=== PATIENT | female | born 1985 | race Caucasian/White ===

== ENCOUNTER 2017-01-29 21:49 | Emergency (ER) | payer OTHER ==
[~2017-01-29] VITALS: Ht 165.1 cm; Wt 118.2 kg
[~2017-01-29 21:49] MED LIST: FLUC150T48 PO; SULF1TAB7 PO
[2017-01-29 21:52] VITALS: BP 147/96; PULSE 128; RESP 16
--- NOTE | 2017-01-29 22:03 | ED.REPORT ---
HPI-General Illness Date of Service January 29, 2017 ED Provider: Bhumi HooverO. The patient is a 31 year old female with a history of chronic sinus infections, trigeminal neuralgia, anxiety, and PTSD who presents to the ED with left-sided facial pain onset three days ago. Associated symptoms include rhinorrhea as well as left-sided head, ear, and tooth pain. The patient denies fever, chills, neck pain, neck stiffness, nausea, vomiting, cough, other symptoms. She has had similar symptoms in the past associated with trigeminal neuralgia, most recently three months ago. Nursing Notes Stated Complaint: HEADACHE Chief Complaint: Headache Nursing Notes Reviewed: Yes Allergies: Coded Allergies: amoxicillin (Verified Allergy, Unknown, 05/30/16) clavulanic acid (Verified Allergy, Unknown, 05/30/16) Scheduled Sulfamethoxazole/Trimeth 800-160 mg (Bactrim DS) 1 Each Tablet 1 TABLET PO BID Scheduled PRN Fluconazole (Diflucan) 150 Mg Tablet 150 MG PO ONCE PRN PRN yeast infection General Time Seen by MD: 22:02 Chief Complaint Other (Left-sided Facial Pain) Hx Obtained From: Patient Arrived By: Walk-in Sudden in Onset?: No Onset Occurred: 3 days ago Symptom Duration: Since onset Location: : Ear left: Face: Head: Mouth Quality: Painful Severity: Current: Moderate Severity: Maximum: Moderate Pertinent Negative: Relieved by nothing Context Related History: Reports Psychiatric history Recent Healthcare: No recent doctor visit Similar Sx Previous: Yes Past Medical History Past Medical History Chronic sinus infections Trigeminal neuralgia Anxiety PTSD Past Surgical History Sinus surgery Smoking History Never Smoker Social History Alcohol Use: Denies alcohol use Drug Use: Denies drug use Ambulatory Status Independent Review of Systems + Left-sided facial pain - Neck stiffness Full Review of Systems Constitutional: Denies: Chills, Fever Ears / Nose / Throat: Reports: Earache left, Toothache (Left-sided) Respiratory: Denies: Non-productive cough, Shortness of breath GI: Denies: Diarrhea, Nausea, Vomiting Musculoskeletal: Denies: Neck pain Allergy / Immune: Reports: Rhinorrhea Neurologic: Reports: Headache (Left-sided) Complete sys rev & neg: except as marked. Physical Exam Vital Signs Vital Signs Date Time Temp Pulse Resp B/P Pulse Ox O2 Delivery O2 Flow Rate FiO2 01/29/17 23:39 37.1 97 16 135/88 100 Room Air 5/7/17 21:52 37.1 128 16 147/96 Room Air Initial VS: Reviewed Respiratory: Breath sounds normal, Clear to auscultation, No respiratory distress Cardiovascular: Regular rate & rhythm, Heart sounds normal Skin: Warm, Dry, No cyanosis Psychiatric: Mood/affect normal, Behavior normal, Normal thought content General/Constitutional: Awake, Alert Head / Eyes: Atraumatic, Normocephalic, PERRL, EOMI ENT: Airway patent, Mucous membranes moist, Tympanic membs NL, Ext aud canal NL Sinus: Positive: Tender maxillary L Neck: Supple, No meningismus, Full range of motion Neurologic: Oriented X3, Speech NL, No motor deficits, No sensory deficits, CN II - XII intact Interpretation & Diagnostics Lab Results Interpretation Result Diagram: 01/29/17 2303 01/29/17 2303 Test 01/29/17 23:03 White Blood Count 9.7th/mm3 (3.8-10.1) Red Blood Count 4.48mil/mm3 (3.90-5.20) Hemoglobin 12.2g/dL (12.0-15.6) Hematocrit 37.4% (35.0-46.0) Mean Corpuscular Volume 83.5fL (81-100) Mean Corpuscular Hemoglobin 27.2pg (27.0-35.0) Mean Corpuscular Hemoglobin Concent 32.6% (32.0-37.0) Red Cell Distribution Width 13.0% (12.3-15.4) Platelet Count 375bil/L (150-400) Neutrophils (%) (Auto) 69.9% (40-74) Lymphocytes (%) (Auto) 23.5% (14-46) Monocytes (%) (Auto) 5.4% (4-12) Eosinophils (%) (Auto) 0.7% (0-5) Basophils (%) (Auto) 0.3% (0-3) Sodium Level 141mEq/L (134-144) Potassium Level 4.3mEq/L (3.5-5.2) Chloride Level 101mEq/L (97-108) Carbon Dioxide Level 24mmol/L (18-29) Blood Urea Nitrogen 9mg/dL (6-20) Creatinine 0.57mg/dL (0.57-1.00) Estimat Glomerular Filtration Rate 177mL/min (>59) Glucose Level 101mg/dL (60-99) Calcium Level 9.5mg/dL (8.5-10.1) Total Bilirubin 0.3mg/dL (0.0-1.2) Aspartate Amino Transf (AST/SGOT) 20U/L (0-50) Alanine Aminotransferase (ALT/SGPT) 25U/L (0-32) Alkaline Phosphatase 95U/L (25-150) C-Reactive Protein 2.1mg/dL (0.0-0.5) Total Protein 7.7g/dL (6.4-8.4) Albumin 4.2g/dL (3.4-5.0) Hold Phipps Top Tube Received (Received) CT Head Interpretation CONCLUSION: Left maxillary sinusitis. Report transmitted to the ED at 01/29/2017 - 10:36:18 PM PDT Study: Head CT no contrast Interpretation / Wet Read by: Interpret - Radiologist (Alvin Miranda M.D.) Re-Eval/Medical Decision Med Decision/Clinical Course Classic maxillary sinusitis symptoms. Sinusitis is evident on the CT scan. She is exquisitely tender over her left maxilla. I suspect this is triggered her trigeminal neuralgia. As such we will treat her with a course of antibiotics. Short course of opiates provided for pain. She did not have clinical meningitis or subarachnoid hemorrhage. Lumbar puncture was not indicated. Source of Hx: Old records Time of Eval: 23:30 Patient Status: Condition improved, Pain improved Evaluation: Mental status normal, Neurologic nonfocal Re-Evaluation/Progress Note: Discussed with patient CT and lab results, diagnosis, and plan for discharge. Follow-up and return to the ER instructions given. Patient agrees with plan for care and all questions were addressed. Counseled Regarding: Diagnosis, Lab results, Need for follow-up, When/why to return to ED Discharge & Departure Primary Impression: Sinusitis Sinusitis location: maxillary Chronicity: acute Recurrence: not specified as recurrent Qualified Code: J01.00 - Acute maxillary sinusitis, unspecified Additional Impression: Trigeminal neuralgia Disposition: Home Discharge Condition All VS Reviewed: Yes Condition: Improved Patient Instructions: Sinusitis (ED), Trigeminal Neuralgia (ED) Additional Instructions: Thank you for entrusting us with your care. Your CT indicated left maxillary sinusitis. Please take Omnicef twice daily for seven days. 1-2 Percocet every six hours as needed for pain. Do not drink alcohol, drive, or consume acetaminophen while taking Percocet. Call your primary care provider on Monday for a follow-up appointment. Return to the ER with any new or worsening symptoms including fever, neck stiffness, or other signs of meningitis. Referrals: OTHER,PHYSICIAN (PCP) Scribe Attestation Portions of this note were transcribed by Anjelica Smith. I, Dr. Ochoa, personally performed the history, physical exam, and medical decision-making; I reviewed and confirmed the accuracy of the information in the transcribed note. Signed by: Saeed Mora, 01/29/2017, 23:57 Donnell Ochoa DO January 29, 2017 22:03 ANJELICA SMITH January 29, 2017 22:36
[2017-01-29] MEDS ORDERED: 0.9% Sodium Chloride 1,000 ML IV ONE (22:10)
[2017-01-29] MEDS ORDERED: HYDROcodone-APAP 5-325 mg Tablet PO ONE (22:10)
[2017-01-29] MEDS ORDERED: Ondansetron 2 mg/mL 2 mL Inj IVPUSH PRN (22:10)
[2017-01-29] MEDS ORDERED: Cefdinir 25 mg/mL 60 mL Suspension PO ONE (22:45)
[2017-01-29] MEDS ORDERED: _oxyCODONE/APAP 5-325 mg Tablet PO PRN (23:00)
[2017-01-29 23:14] LABS: BASOPHILS % (AUTO) 0.3 % (0-3); EOSINOPHILS % (AUTO) 0.7 % (0-5); MONOCYTES % (AUTO) 5.4 % (4-12); Mean Corpuscular Hemoglobin 27.2 pg (27.0-35.0); Mean Corpuscular Volume 83.5 fL (81-100); NEUTROPHILS % (AUTO) 69.9 % (40-74); Platelet Count 375 bil/L (150-400)
[2017-01-29 23:39] VITALS: BP 135/88; PULSE 97; RESP 16; O2SAT 100
--- NOTE | 2017-01-30 08:04 | DRSVH ---
PROCEDURE: CT BRAIN WITHOUT CONTRAST ([id number]) INDICATIONS: headache, left facial pain TECHNIQUE: Noncontrast 4.5 mm thick angled axial sections acquired from the foramen magnum to the vertex, with c oronal reformats. COMPARISON: None. FINDINGS: Image quality: Excellent. CSF spaces: Basal cisterns are patent. No extra-axial fluid collections. The ventricles are symmet justin in size and shape. Brain: No intracranial bleeds or masses. There is cerebral volume loss for age, with resultant vent ricular and sulcal prominence. There are periventricular and deep white matter chronic small vessel ischemic changes. There is intracranial internal carotid artery atherosclerosis. Skull and face: Calvarium and visualized facial bones appear intact, without suspicious lesions. Sinuses: Moderate left maxillary sinus disease. Moderate left ethmoid sinus disease. IMPRESSION: Moderate left maxillary and ethmoid sinus disease. No acute intracranial process. Dictated by: Jaosn Arango M.D. on 01/30/2017 at 8:00 Approved by: Jason Arango M.D. on 01/30/2017 at 8:03
== END 2017-01-29 23:45 | disposition home or self-care (01) ==
LOC: SED 21:49
DX: J01.00 Acute maxillary sinusitis, unspecified (principal); G50.0 Trigeminal neuralgia; F41.9 Anxiety disorder, unspecified; F43.10 Post-traumatic stress disorder, unspecified; Z88.8 Allergy status to other drugs, medicaments and biological substances; Z88.1 Allergy status to other antibiotic agents
CPT/HCPCS: 36415; 70450; 80053; 85025; 86140; 96372; 99285; J1885

== ENCOUNTER 2017-04-07 22:40 | Emergency (ER) | payer OTHER ==
[~2017-04-07] VITALS: Ht 165.1 cm; Wt 118.2 kg
[2017-04-07 22:50] VITALS: BP 141/84; PULSE 127; RESP 16; O2SAT 100
[2017-04-07 23:41] LABS: BASOPHILS % (AUTO) 0.2 % (0-3); EOSINOPHILS % (AUTO) 1.1 % (0-5); MONOCYTES % (AUTO) 4.5 % (4-12); Mean Corpuscular Volume 81.2 fL (81-100); NEUTROPHILS % (AUTO) 75.4 % (40-74); Platelet Count 415 bil/L (150-400)
[2017-04-08] LABS: Magnesium 1.8 mg/dL (1.6-2.6)
--- NOTE | 2017-04-08 00:36 | ED.REPORT ---
HPI-General Illness Date of Service Apr 08, 2017 ED Provider: Dr. Lala Pt is a 31 y/o female w/ a hx of recurrent sinus infections, trigeminal neuralgia, presenting to the ED c/o facial pain onset about 3 days ago. The patient has been feeling generally ill with URI-like symptoms for 3 days and states this is causing a trigeminal neuralgia flare-up. She normally experiences trigeminal neuralgia pain on the left side of her face for which she takes gabapentin and OxyContin 30 mg BID. She is experiencing right-sided facial pain as well today which feels similar to her left-sided trigeminal neuralgia pain. She c/o associated post-nasal drip, nausea, jaw pain. The patient states she also has chronic sinus problems and usually takes anti- allergy medications and has taken antibiotics in the past. She states this feels similar to a sinus infection. She is feeling dehydrated because of her symptoms. Nursing Notes Stated Complaint: HEADACHE Chief Complaint: General Complaint Nursing Notes Reviewed: Yes Allergies: Coded Allergies: amoxicillin (Verified Allergy, Unknown, 05/30/16) clavulanic acid (Verified Allergy, Unknown, 05/30/16) Scheduled Sulfamethoxazole/Trimeth 800-160 mg (Bactrim DS) 1 Each Tablet 1 TABLET PO BID Scheduled PRN Fluconazole (Diflucan) 150 Mg Tablet 150 MG PO ONCE PRN PRN yeast infection General Time Seen by MD: 00:36 Chief Complaint Other (facial pain) Hx Obtained From: Patient Arrived By: Walk-in Sudden in Onset?: No Onset Occurred: 3 days ago Symptom Duration: Since onset Location: : Face Quality: Painful Radiation: : Does not radiate Severity: Current: Mild Severity: Maximum: Moderate Recent Healthcare: Previous diagnosis Similar Sx Previous: Yes Past Medical History Past Medical History Notes: Takes Gabapentin and Oxycontin chronically for trigeminal neuralgia Past Medical History Chronic sinus infections Trigeminal neuralgia Anxiety PTSD Past Surgical History Sinus surgery Smoking History Never Smoker Social History Alcohol Use: Denies alcohol use Drug Use: Denies drug use Ambulatory Status Independent Review of Systems +facial pain Full Review of Systems Constitutional: Denies: Chills, Fever Ears / Nose / Throat: Reports: Nasal congestion Respiratory: Reports: Non-productive cough, Denies: Shortness of breath GI: Reports: Nausea, Denies: Abdominal pain Complete sys rev & neg: except as marked. Physical Exam Vital Signs Vital Signs Date Time Temp Pulse Resp B/P Pulse Ox O2 Delivery O2 Flow Rate FiO2 04/08/17 03:21 36.7 90 16 138/80 100 Room Air 04/07/17 22:50 36.9 127 16 141/84 100 Room Air Initial VS: Reviewed, Vital signs abnormal Head / Eyes: Atraumatic, Normocephalic, PERRL Neck: Supple, Full range of motion Respiratory: Breath sounds normal, Clear to auscultation, No respiratory distress Abdomen / GI: Soft, Non-tender, No guarding, No rebound, No distention Extremities: Vascular intact, Neuro intact, No swelling Skin: Warm, Dry, No cyanosis Neurologic: Alert, Oriented, Nonfocal Psychiatric: Mood/affect normal, Behavior normal, Normal thought content General/Constitutional: Awake, Alert, No acute distress, Cooperative, Not toxic appearing Distress / Hydration: Positive: Dehydration mild ENT: Atraumatic, Airway patent, Mucous membranes moist, Tympanic membs NL Hole in nasal septum Significant crusting bilaterally Erythema of nasal passages and turbinates Cardiovascular: Regular rhythm, Heart sounds NL, No gallop, No murmurs, No rubs Heart Rate / Rhythm: Positive: Tachycardia Interpretation & Diagnostics Lab Results Interpretation Result Diagram: 04/07/17 2325 04/07/17 2325 Test 04/07/17 23:25 White Blood Count 14.8th/mm3 (3.8-10.1) Red Blood Count 4.74mil/mm3 (3.90-5.20) Hemoglobin 12.8g/dL (12.0-15.6) Hematocrit 38.5% (35.0-46.0) Mean Corpuscular Volume 81.2fL (81-100) Mean Corpuscular Hemoglobin 27.0pg (27.0-35.0) Mean Corpuscular Hemoglobin Concent 33.2% (32.0-37.0) Red Cell Distribution Width 13.2% (12.3-15.4) Platelet Count 415bil/L (150-400) Neutrophils (%) (Auto) 75.4% (40-74) Lymphocytes (%) (Auto) 18.5% (14-46) Monocytes (%) (Auto) 4.5% (4-12) Eosinophils (%) (Auto) 1.1% (0-5) Basophils (%) (Auto) 0.2% (0-3) Sodium Level 138mEq/L (134-144) Potassium Level 3.8mEq/L (3.5-5.2) Chloride Level 100mEq/L (97-108) Carbon Dioxide Level 24mmol/L (18-29) Blood Urea Nitrogen 9mg/dL (6-20) Creatinine 0.67mg/dL (0.57-1.00) Estimat Glomerular Filtration Rate 147mL/min (>59) Glucose Level 107mg/dL (60-99) Calcium Level 9.5mg/dL (8.5-10.1) Magnesium Level 1.8mg/dL (1.6-2.6) Total Bilirubin 0.2mg/dL (0.0-1.2) Aspartate Amino Transf (AST/SGOT) 25U/L (0-50) Alanine Aminotransferase (ALT/SGPT) 32U/L (0-32) Alkaline Phosphatase 105U/L (25-150) Total Protein 7.7g/dL (6.4-8.4) Albumin 4.4g/dL (3.4-5.0) Hold Phipps Top Tube Received (Received) Re-Eval/Medical Decision Med Decision/Clinical Course Pt presenting with sinusitis symptoms x2-3 days that have worsened her trigeminal neuralgia and made it difficult to stay hydrated due to the pain. Pt was given 1L NS, dilaudid for pain and zithromax for sinus infection. She was feeling much better at the time of d/c and was given instructions to f/u with pcp. Discussed with pt that as she is on pain contract, no narcotics can be prescribed here. 4 additional days of zithromax were given for sinus infection. Source of Hx: Old records Time of Eval: 02:27 Re-Evaluation/Progress Note: Pt rechecked. Informed pt of plan for treatment. Pt understands and agrees with plan for treatment. F/U instructions and RTER warnings given. All questions addressed. Counseled Regarding: Diagnosis, Lab results, Need for follow-up, When/why to return to ED Discharge & Departure Primary Impression: Trigeminal neuralgia Additional Impressions: Sinusitis Sinusitis location: unspecified location Chronicity: acute Recurrence: recurrent Qualified Code: J01.91 - Acute recurrent sinusitis, unspecified Dehydration Disposition: Home Discharge Condition All VS Reviewed: Yes Condition: Stable Additional Instructions: Thank you for entrusting us with your care. I suspect the sinusitis may have exacerbated your trigeminal neuralgia. Labs today were reassuring. Please take the azithromycin antibiotic as directed. Continue to perform sinus rinses and make sure you are using only sterile water during these. Follow up with your primary care provider next week. Return to the emergency department for high fever, vomiting, severe headache, confusion, or for other concerning signs or symptoms. Referrals: NOPCP (PCP) Ilanae Attestation Portions of this note were transcribed by Vipul Allan. I, Dr. Lala personally performed the history, physical exam and medical decision-making; I reviewed and confirmed the accuracy of the information in the transcribed note. Signed by Saeed Corral, 04/08/17 - 0100 Raul Lala DO Apr 08, 2017 00:36 VIPUL ALLAN Apr 08, 2017 00:52
[2017-04-08] MEDS ORDERED: 0.9% Sodium Chloride 1,000 ML IV ONE (00:51)
[2017-04-08] MEDS ORDERED: Ondansetron 2 mg/mL 2 mL Inj IVPUSH PRN (00:55)
[2017-04-08] MEDS: HYDROmorphone 1 mg/mL Inj IVPUSH PRN ×2 (01:54→02:44)
[2017-04-08 03:21] VITALS: BP 138/80; PULSE 90; RESP 16; O2SAT 100
== END 2017-04-08 03:22 | disposition home or self-care (01) ==
LOC: SED 22:40
DX: J01.91 Acute recurrent sinusitis, unspecified (principal); G50.0 Trigeminal neuralgia; E86.0 Dehydration; D72.829 Elevated white blood cell count, unspecified; F41.9 Anxiety disorder, unspecified; Z98.890 Other specified postprocedural states; Z88.1 Allergy status to other antibiotic agents; Z88.8 Allergy status to other drugs, medicaments and biological substances
CPT/HCPCS: 36415; 80053; 83735; 85025; 96361; 96374; 96375; 96376; 99284; J1170; J2405; J7030